=== PATIENT | male | born 1945 | race Caucasian/White ===

== ENCOUNTER 2024-05-30 10:15 | Emergency (ER) | payer MEDICARE, SELFPAY ==
[2024-05-30 10:26] VITALS: BP 137/5
[2024-05-30 11:00] VITALS: BP 168/91
--- NOTE | 2024-05-30 11:00 | ED.GENMED ---
History of Present Illness
General
Chief Complaint: Weakness
Source: patient
Exam Limitations: none
Time Seen by Provider: 05/30/24 10:39
History of Present Illness
History of Present Illness:
78yoM with a history of Parkinson's disease presenting with his and son for evaluation of ambulatory issues. Patient has been having intermittent episodes of leg weakness over the past two months or so. states he will be walking and he
will freeze unable to move any further. He had an episode of this last week and again had an episode today. She also reports intermittent 'fainting episodes' in which he 'slumps over' while walking. He does not lose consciousness. His Aricept
was discontinued by his PCP in March due to these episodes and he has not had any fainting episodes since. He has had 3 mechanical falls in the past week. No reported head strike or LOC. No injuries from the falls other than some minor bruises.
Patient denies any fevers, vomiting, diarrhea, dysuria, chest pain. He does cycling classes 2x weekly and had a personal insurance advisor that he sees once weekly. He does not use any ambulatory aids.
Past History
Past History
ED Past Medical History: Other (Parkinson's disease)
ED Past Surgical History: Appendectomy and Other (Umbilical hernia repair, cataract removal, retinal detachment repair)
Social History
Tobacco: Non-smoker
Alcohol: None
Personal:
Living: with family
Employment: Employed
Family History
Family History: CAD
Phy Exam
General Physical Exam
General Presentation: well appearing and no apparent distress
General Skin: warm and dry
General Habitus: elderly
General Mental: alert
ENT Exam
ENT Exam: normocephalic
Additional ENT: No external signs of head trauma. No cervical spine tenderness.
Cardiovascular Exam
Cardiovascular Exam: regular rate/rhythm
Pulmonary Exam
Pulmonary Exam: lungs clear, no respiratory distress, no rales, no crackles and no rhonchi
Neurological Exam
Neurological Exam: alert and other (Able to lift all extremities against gravity)
[place] Coma Scale
Eye Opening: Spontaneous
Verbal Response: Oriented
Motor Response: Obeys Commands
GCS Total Score: 15
Skin Exam
Skin Exam: normal color and warm/dry
Psychiatric Exam
Psychiatric Exam: normal mood/affect
Course
Orders/Labs/Results
Orders:
Orders
05/30/24 10:30
Electrocardiogram (*1) Urgent
Reason for Study: Chest Pain
EKG- Treatment ONCE
05/30/24 10:59
CT Head W/o Iv Contrast Urgent
Comment:
Reason For Exam: weakness
05/30/24 11:14
Complete Blood Count/With Diff Urgent
Comprehensive Metabolic Panel Urgent
TSH Reflex To Free T4 Urgent
Troponin I Urgent
05/30/24 11:38
Urinalysis Reflex To Culture Urgent
Date Specimen was Collected: 05/30/24
Time Specimen was Collected: 11:28
Urine Microscopic Reflex Cult Urgent
05/30/24 12:48
Pt Eval And Treat Urgent
Activity Level: Out of Bed- Ad Gavi
Abnormal Lab Results
05/30/24 05/30/24
11:14 11:38
RBC 3.34 L 10^6/uL
(4.70-6.10)
Hgb 11.6 L g/dL
(13.0-18.0)
Hct 34.3 L %
(39.0-52.0)
MCV 102.7 H fL
(80.0-94.0)
MCH 34.7 H pg
(27.0-31.0)
Abs Immat Gran (auto) 0.1 H 10^3/uL
(0-0.05)
Absolute Neuts (auto) 6.8 H 10^3/uL
(1.4-6.5)
Absolute Monos (auto) 0.8 H 10^3/uL
(0.1-0.6)
Immature Gran % 0.9 H %
(0-0.5)
Lymphocytes % 16.3 L %
(20.5-51.1)
BUN 33 H mg/dl
(9-20)
Urine Bacteria (Reflex) Few A
(Negative)
Urine Albumin (Reflex) 1+ A
(Neg - Trace)
05/30/24 11:14
05/30/24 11:14
Vital Signs
Initial and Last Documented VS:
Initial Vital Signs
Temp Pulse BP Pulse Ox
97.7 F 71 137/5 99
05/30/24 10:26 05/30/24 10:26 05/30/24 10:26 05/30/24 10:26
Last Documented Vital Signs
Temp Pulse Resp BP Pulse Ox
97.7 F 83 18 181/95 95
05/30/24 10:26 05/30/24 14:30 05/30/24 14:30 05/30/24 14:21 05/30/24 13:30
MDM/Problems Addressed
Differential Diagnosis Includes:
78yoM here with ambulatory issues. Hx of Parkinson's. Has been having intermittent episodes of leg weakness while standing. Had 3 mechanical falls within the past week. VSS. He is well appearing in no distress. He is able to lift all extremities
against gravity. Differential diagnosis includes but is not limited to: ambulatory dysfunction due to Parkinson's, orthostatic hypotension, UTI
Initial ED plan: Check cardiac labs, TSH, UA, EKG, and CT head. Will consult PT once medical workup complete.
*EKG
Interpreted by ED Provider?: Yes
EKG Intrepretation Date: 05/30/24
Heart Rate: 58
Rate: bradycardiac
Rhythm: sinus
[place]: left axis deviation
Interval: first degree heart block
Ischemia: no ischemia
*Critical Care Note
Total Time (30-74mins, 75-104mins- exclusive of procedures): Not Applicable
Update Note
Update Note:
Labs reveal a mild anemia. Remainder of labs overall unremarkable including normal renal function, glucose, TSH. EKG shows sinus bradycardia without ischemic changes and troponin within normal limits. No signs of infection on urinalysis. CT head
is also negative for acute findings. Patient was evaluated by physical therapy and short-term rehab recommended as patient was a heavy assist x2. and son are refusing rehab placement at this time stating his ambulatory issues seem to be
intermittent. I offered case management consultation for possible home nursing/home PT which is also declining stating that he has a PT office he can go to if needed. No indication for hospitalization at this time. Family was encouraged to
speak with his neurologist and PCP. ED return precautions discussed. Patient discharged in stable condition.
ED Attending Note
-
Portions of this chart may have been created with voice recognition software.� Occasional wrong word or��sound alike� substitutions may have occurred due to the inherent limitations of voice recognition software.
Discharge Plan
Departure
Patient Disposition: Home (Routine Discharge)
Date of Disposition: 05/30/24
Time of Disposition: 14:39
Patient with high blood pressure during this ER visit?: Yes
Discharge Problem:
Ambulatory dysfunction
Instructions: Parkinson disease, Fall Prevention for Older Adults
Prescriptions:
No Action
multivitamin [Multi-Day] 1 EACH tablet
1 ea PO DAILY
ascorbate calcium (vitamin C) 500 MG tablet
500 mg PO DAILY
amantadine HCl 100 mg Capsule
100 mg PO DAILY
amantadine HCl 100 mg Capsule
200 mg PO .DINNER
carbidopa-levodopa 25-100 mg Tablet
1 tab PO TID
omega-3 fatty acids Capsule
1,000 mg PO DAILY
aspirin 325 mg Tablet
325 mg PO DAILY Qty: 21 0RF
quetiapine 25 mg Tablet
12.5 mg PO HS Qty: 30 0RF
Referrals:
Vicki Strickland MD [Family Provider] -
Activity Restrictions/Additional Instructions:
Please call your neurologist and family doctor today for follow-up. Return to the ER with any new or worsening symptoms.
Interventions
Interventions:
*Risk Screen - Suicide Last Done: 05/30/24 15:29
*General Assessment Last Done: 05/30/24 15:29
*Neglect/Abuse Screening Last Done: 05/30/24 15:29
*Nursing Disposition Last Done: 05/30/24 15:29
ED- Cardiac Assessment Last Done: 05/30/24 11:18
ED- Neurological Assessment Last Done: 05/30/24 11:18
ED- Pulmonary Assessment Last Done: 05/30/24 11:18
Discharge Date and Time
Discharge Date/Time: 05/30/24 15:31
Print Language: INDONESIAN
[2024-05-30 11:40] LABS: ALT (SGPT) 15 U/L (0-50); AST (SGOT) 23 U/L (17-59); Albumin 4.7 g/dl (3.5-5.0); Alkaline Phosphatase 126 U/L (38-126); Blood Urea Nitrogen 33 mg/dl (9-20); Calcium 9.6 mg/dl (8.4-10.2); Carbon Dioxide 24 mmol/L (22-30); Chloride 105 mmol/L (98-107); Glucose 86 mg/dl (70-99); Potassium 4.6 mmol/L (3.5-5.1); Sodium 138 mmol/L (135-145); Total Protein 7.1 g/dl (6.3-8.2); eGFR 56.93
[2024-05-30 11:51] LABS: Troponin I < 0.012 ng/ml
[2024-05-30 12:13] LABS: % Basophils 0.4 % (0-2); % Eosinophils 1.2 % (0-6); % Immature Granulocytes 0.9 % (0-0.5); % Lymphocytes 16.3 % (20.5-51.1); % Monocytes 8.4 % (1.7-9.3); % Neutrophils 72.8 % (42.2-75.2); Absolute Eosinophils 0.1 10^3/uL (0-0.7); Absolute Immature Granulocytes 0.1 10^3/uL (0-0.05); Absolute Lymphocytes 1.5 10^3/uL (1.2-3.4); Absolute Monocytes 0.8 10^3/uL (0.1-0.6); Absolute Neutrophils 6.8 10^3/uL (1.4-6.5); Hematocrit 34.3 % (39.0-52.0); Hemoglobin 11.6 g/dL (13.0-18.0); Mean Corp Hgb Conc. 33.8 g/dL (33.0-37.0); Mean Corpuscular Hgb 34.7 pg (27.0-31.0); Mean Corpuscular Volume 102.7 fL (80.0-94.0); Mean Platelet Volume 9.9 fL (7.4-10.4); Nucleated Red Blood Cells % 0 % (-); Platelet Count 265 10^3/uL (130-400); Red Blood Cell Count 3.34 10^6/uL (4.70-6.10); Red Cell Dist. Width 14.3 % (11.5-14.5); White Blood Cell Count 9.4 10^3/uL (4.8-10.8)
[2024-05-30 12:17] LABS: Urine Albumin 1+ (Neg - Trace); Urine Bilirubin Negative (Negative); Urine Character Clear (Clear); Urine Color Yellow; Urine Glucose Negative (Negative); Urine Ketone Negative (Negative); Urine Leukocyte Negative (Negative); Urine Nitrite Negative (Negative); Urine Occult Blood Negative (Negative); Urine Specific Gravity 1.015 (<1.030); Urine Urobilinogen Negative (Neg - 1+)
[2024-05-30 12:30] LABS: Urine Bacteria Few (Negative); Urine Red Blood Cell 0-2 /HPF (0-2); Urine Squamous Cell 0-2 /LPF (Few)
[2024-05-30 13:01] LABS: TSH Reflex To Free T4 1.52 uIU/ml (0.47-4.68)
[2024-05-30 14:00] VITALS: BP 181/97
[2024-05-30 14:21] VITALS: BP 181/95
[2024-05-30 14:48] VITALS: BP 181/95; BP 181/97; BP 73/51
--- NOTE | 2024-05-30 15:15 | CM ---
CM reviewed medical records. Plan for discharge to home as per family. CM left message for to discuss home care services.
== END 2024-05-30 15:31 | disposition home or self-care (01) ==
LOC: EMR 10:15
PROVIDERS: Physician Assistant; EMERGENCY PHYSICIAN Emergency Medicine; FAMILY PHYSICIAN Internal Medicine
DX: R26.2 Difficulty in walking, not elsewhere classified (principal); G20.A1 Parkinson's disease without dyskinesia, without mention of fluctuations; Z90.49 Acquired absence of other specified parts of digestive tract; Z91.81 History of falling
CPT/HCPCS: 99284; 70450; 80053; 81003; 81015; 84443; 84484; 85025; 93005

== ENCOUNTER → 2024-06-20 15:02 | Outpatient (REF) | payer MEDICARE, SELFPAY | LOC: HWRCS 15:02 | PROVIDERS: ATTENDING PHYSICIAN Internal Medicine Interventional Cardiology; FAMILY PHYSICIAN Internal Medicine | DX: R55 Syncope and collapse (principal); G20.A1 Parkinson's disease without dyskinesia, without mention of fluctuations; I44.0 Atrioventricular block, first degree; R41.89 Other symptoms and signs involving cognitive functions and awareness; I10 Essential (primary) hypertension; I45.10 Unspecified right bundle-branch block | CPT/HCPCS: 93306 ==